=== PATIENT | female | born 1965 | race Caucasian/White ===

== ENCOUNTER → 2016-08-04 | Day surgery (SDC) | payer SELFPAY ==
[~2016-08-04] VITALS: Ht 157.5 cm; Wt 62.1 kg
[~2016-08-04] MED LIST: ACETAMINOPHEN/H1 TAB PO; ALBUTEROL0.09 MG/A1 INH; AUGMENTIN 875 M1 TAB PO; AUGMENTIN 875875 MG PO; DUONEB 3 MG/3 ML3 ML INH/SOL; ESTRADIOL0.5 MG PO; FLOVENT HF0.22 MG/Ac INH; IPRAT-ALBUT 0.5-3(2. NEB; LEVAQUIN500 MG PO; LOSARTAN POTAS100 MG PO; MONTELUKAST SOD10 MG PO; PANTOPRAZOLE SO40 MG PO; PERCOCET 325 MG1 TA2 PO; PREDNISONE10 MG PO; PREDNISONE50 MG PO; PROVENTIL0.09 MG/A1 PO; ROBITUSSIN W/CO10 ML PO
--- NOTE | 2016-08-04 11:28 | Operative Report ---
Operative/Inv Procedure Report Surgery Date: 08/04/16 Name of Procedure: Excision skin malignancy right ear 4.2 cm full-thickness graft right ear 16 cm , excision skin malignancy nose 1.2 cm, Full-thickness skin graft 2.5 cm nose, excision skin malignancy abdominal wall 4.8 cm, complex closure abdominal wall 6 cm Pre-Operative Diagnosis: skin malignancy abdominal wall skin malignancy nose skin malignancy right ear Post-Operative Diagnosis: Same Estimated Blood Loss: less than 50ml Surgeon/Dental Ceramist: OWEN CELESTE,ARMIDA Cunningham Anesthesia: laryngeal mask airway Operative/Procedure Note Note: Patient was counseled in regards to the procedure the alternatives the risks and expected outcomes as relates to the skin malignancies of the abdominal wall posterior right and ear and nose. All biopsy-proven skin malignancies. We discussed reconstructive options including a full thickness grafting and the risks of partial or complete loss recurrence infection positive margins pain bleeding open wounds. Once agreed informed consent was signed. Was taken to the operating placed supine on the operating table. venodyne boots were placed and laryngeal mask anesthesia was established. Full % excision for the dimensions described above was carried out of the upper medial nose and medial [place] region. He was marked for orientation sent for frozen section analysis which shows no remaining malignancy. A full-thickness graft was harvested from the right groin defatted and placed in the wound bed and sutured at the periphery including a tie-over bolster dressing. 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 Full-thickness graft was placed in the defect sutured at the periphery including a tie-over bolster dressing for the dimensions described above. Excision was then carried out of a large abdominal wall skin malignancy and closed in complex fashion after extensive undermining to provide a nice tension- free closure for the dimensions described above with 2 layers. Steri-Strips applied on the trunk
--- NOTE | 2016-08-04 11:34 | Operative Report ---
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 Patient has cosmetic changes of the breast. She would like to do a staged procedure first stage capsulectomies and removal of implants followed by lift and/or plus implants. We talked about seroma infection bleeding pain numbness open wounds shape of the breast. Consent was signed. She was taken to the operating room placed supine on the operating table. Venodyne boots were placed. General anesthesia was established and the chest was prepped and draped in usual sterile fashion the medial medial portion of the old scars of the inframammary fold location were deepened and the intact saline implants 270 mL were removed from each side the right side being overfilled. Capsulectomies were performed with use of electrocautery. The wounds were made hemostatic local anesthesia was injected in the sites. Drains were placed through lateral stab incision and closed in 3 layers. End dictation
== END ==
LOC: STS 07-22 07:00
DX: N64.81 Ptosis of breast (principal); T85.44XA Capsular contracture of breast implant, initial encounter; I10 Essential (primary) hypertension; J45.909 Unspecified asthma, uncomplicated
CPT/HCPCS: J0131; J0690; J2250